=== PATIENT | female | born 1980 | race Caucasian/White ===

== ENCOUNTER 2016-03-21 19:01 | Emergency (ER) | payer OTHER ==
[~2016-03-21] VITALS: Ht 175.2 cm; Wt 94.3 kg
[~2016-03-21 19:01] MED LIST: 'zithromax250 MG PO; ALBUTEROL2.5 MG/0.5 INH; ASMANEX220 MC1 INH; ATIVAN0.5 MG PO; AUGMENTIN 875 M1 TAB PO; BACTRIM DS 8001 TA1 PO; BACTROBAN CREAM15 GM PO; CARAFATE1 G1 PO; CITALOPRAM20 MG PO; CLARITIN10 MG PO; LOMOTIL 0.025 M1 TA1 PO; MEDROL DOSEPAK4 MG PO; MOTRIN800 MG PO; MUCINEX FAST-M180 M3 PO; NAPROSYN500 MG PO; OMEPRAZOLE D/R20 MG PO; PREDNISONE10 MG PO; PREDNISONE20 M1 PO; PREDNISONE50 MG PO; PRILOSEC10 MG PO; SINGULAIR10 M1 PO; TESSALON PERLE100 M1 PO; VENTOLIN H0.09 MG/AC INH; VICODIN 5/500 505 MG PO; ZITHROMAX250 MG PO; ZYRTEC10 MG PO
[2016-03-21 19:06] VITALS: BP 137/75
[2016-03-21] MEDS ORDERED: FLONASE ALLERG9.9 ML NAS (20:13)
[2016-03-21] MEDS ORDERED: PREDNISONE10 MG PO (20:13)
[2016-03-21] MEDS ORDERED: CLARITIN10 MG PO (20:13)
== END 2016-03-21 20:22 | disposition home or self-care (01) ==
LOC: ED 19:01
DX: J45.901 Unspecified asthma with (acute) exacerbation (principal); F17.200 Nicotine dependence, unspecified, uncomplicated; R03.0 Elevated blood-pressure reading, without diagnosis of hypertension; F32.9 Major depressive disorder, single episode, unspecified; Z88.5 Allergy status to narcotic agent; Z88.1 Allergy status to other antibiotic agents

== ENCOUNTER 2016-07-16 09:31 | Emergency (ER) | payer OTHER ==
[~2016-07-16 09:31] MED LIST changes: +FLONASE ALLERG9.9 ML NAS
[2016-07-16] MEDS ORDERED: ZYRTEC10 MG PO (09:38)
[2016-07-16 09:44] VITALS: BP 124/82
[2016-07-16] MEDS ORDERED: DUONEB 3 MG/3 ML3 M1 INH (09:51)
[2016-07-16] MEDS ORDERED: ROBITUSSIN AC 110 ML PO (09:51)
[2016-07-16] MEDS ORDERED: PREDNISONE10 MG PO (09:51)
== END 2016-07-16 13:43 | disposition home or self-care (01) ==
LOC: ED 09:31
DX: J45.901 Unspecified asthma with (acute) exacerbation (principal); R03.0 Elevated blood-pressure reading, without diagnosis of hypertension; F17.200 Nicotine dependence, unspecified, uncomplicated; F32.9 Major depressive disorder, single episode, unspecified; Z90.49 Acquired absence of other specified parts of digestive tract; Z88.1 Allergy status to other antibiotic agents; Z88.2 Allergy status to sulfonamides; Z88.8 Allergy status to other drugs, medicaments and biological substances

== ENCOUNTER 2016-08-31 17:45 | Emergency (ER) | payer OTHER ==
[~2016-08-31] VITALS: Wt 97.5 kg
[~2016-08-31 17:45] MED LIST changes: +DUONEB 3 MG/3 ML3 M1 INH; +ROBITUSSIN AC 110 ML PO
[2016-08-31 18:11] VITALS: BP 117/62
[2016-08-31] MEDS ORDERED: MEDROL DOSEPAK4 MG PO (18:24)
[2016-08-31] MEDS ORDERED: CEPHALEXIN500 M1 PO (18:24)
[2016-08-31] MEDS ORDERED: ZANTAC 150150 MG PO (18:24)
== END 2016-08-31 18:57 | disposition home or self-care (01) ==
LOC: ED 17:45
DX: R60.0 Localized edema (principal); T63.441A Toxic effect of venom of bees, accidental (unintentional), initial encounter; F17.200 Nicotine dependence, unspecified, uncomplicated; Z79.899 Other long term (current) drug therapy; Z88.5 Allergy status to narcotic agent; Z88.1 Allergy status to other antibiotic agents; Y92.89 Other specified places as the place of occurrence of the external cause

== ENCOUNTER 2017-02-04 19:14 | Emergency (ER) | payer OTHER ==
[~2017-02-04] VITALS: Ht 175.2 cm; Wt 97.5 kg
[~2017-02-04 19:14] MED LIST changes: +CEPHALEXIN500 M1 PO; +ZANTAC 150150 MG PO
[2017-02-04 19:21] VITALS: BP 136/78
[2017-02-04 20:28] LABS: BASO # 0.1 10*3/uL (0.0-0.1); EOS # 0.7 10*3/uL (0.0-0.4); EOS % 7.2 % (1.0-4.0); HEMATOCRIT 41.9 % (37.0-47.0); HEMOGLOBIN 13.1 g/dl (12.0-16.0); LYMPH # 3.1 10*3/uL (1.3-4.4); LYMPH % 32.3 % (27.0-41.0); MEAN CORPUSCULAR HGB 25.3 pg (27.0-31.0); MEAN CORPUSCULAR HGB CONC 31.3 g/dl (33.0-37.0); MEAN PLATELET VOLUME 10.7 fl (9.6-12.3); MONO # 0.5 10*3/uL (0.1-1.0); MONO % 5.3 % (3.0-9.0); NEUT # 5.1 10*3/uL (2.3-7.9); NEUT % 53.9 % (47.0-73.0); PLATELET COUNT AUTOMATED 335 10*3/uL (130-400); RED BLOOD COUNT 5.17 10*6/uL (4.10-5.10); RED CELL DISTRI WIDTH 17.1 % (0-14.5); WHITE BLOOD COUNT 9.5 10*3/uL (4.8-10.8)
[2017-02-04 20:44] LABS: ALBUMIN 3.2 gm/dl (3.1-4.5); ALKALINE PHOSPHATASE 79 U/L (45-117); BUN 4 mg/dl (7-24); CHLORIDE 106 mmol/L (98-107); POTASSIUM 3.3 mmol/L (3.5-5.1); SGOT/AST 15 IU/L (3-35); SGPT/ALT 18 U/L (12-78); SODIUM 139 mmol/L (136-145); TOTAL PROTEIN 7.5 gm/dL (6.4-8.2)
[2017-02-04 20:46] LABS: TROPONIN I < 0.015 ng/ml (<0.045)
[2017-02-04] MEDS ORDERED: PREDNISONE10 MG PO (21:10)
[2017-02-04] MEDS ORDERED: CYCLOBENZAPRINE5 M3 PO (21:10)
[2017-02-04] MEDS ORDERED: NAPROSYN500 MG PO (21:10)
[2017-02-04] MEDS ORDERED: DOXYCYCLINE100 M3 PO (21:10)
== END 2017-02-04 21:18 | disposition home or self-care (01) ==
LOC: ED 19:14
PROVIDERS: Nurse Practitioner Family
DX: J45.901 Unspecified asthma with (acute) exacerbation (principal); R07.89 Other chest pain; F17.200 Nicotine dependence, unspecified, uncomplicated; Z88.2 Allergy status to sulfonamides; Z88.8 Allergy status to other drugs, medicaments and biological substances

== ENCOUNTER 2017-02-10 18:21 | Emergency (ER) | payer OTHER ==
[~2017-02-10] VITALS: Wt 97.5 kg
[~2017-02-10 18:21] MED LIST changes: +CYCLOBENZAPRINE5 M3 PO; +DOXYCYCLINE100 M3 PO
[2017-02-10 18:45] LABS: BASO % 0.2 % (0.0-1.0); EOS % 0.1 % (1.0-4.0); HEMOGLOBIN 13.2 g/dl (12.0-16.0); LYMPH # 2.9 10*3/uL (1.3-4.4); LYMPH % 17.2 % (27.0-41.0); MEAN CELL VOLUME 79.8 fl (81.0-99.0); MEAN CORPUSCULAR HGB 25.7 pg (27.0-31.0); MEAN CORPUSCULAR HGB CONC 32.2 g/dl (33.0-37.0); MONO # 0.4 10*3/uL (0.1-1.0); MONO % 2.6 % (3.0-9.0); NEUT # 13.3 10*3/uL (2.3-7.9); NEUT % 79.4 % (47.0-73.0); PLATELET COUNT AUTOMATED 363 10*3/uL (130-400); RED BLOOD COUNT 5.14 10*6/uL (4.10-5.10); RED CELL DISTRI WIDTH 16.7 % (0-14.5); WHITE BLOOD COUNT 16.8 10*3/uL (4.8-10.8)
[2017-02-10 18:47] VITALS: BP 145/95
[2017-02-10 18:56] LABS: ACT PARTIAL THROMBO TIME 21.5 SECONDS (20.8-31.5)
[2017-02-10 19:03] LABS: ALBUMIN 3.5 gm/dl (3.1-4.5); ALKALINE PHOSPHATASE 70 U/L (45-117); BUN 6 mg/dl (7-24); CHLORIDE 102 mmol/L (98-107); CREATININE 0.75 mg/dL (0.55-1.02); POTASSIUM 3.2 mmol/L (3.5-5.1); SGOT/AST 8 IU/L (3-35); SGPT/ALT 18 U/L (12-78); SODIUM 137 mmol/L (136-145); TOTAL PROTEIN 7.5 gm/dL (6.4-8.2); TROPONIN I < 0.015 ng/ml (<0.045)
== END 2017-02-10 19:24 | disposition left against medical advice (07) ==
LOC: ED 18:21
PROVIDERS: Nurse Practitioner Family
DX: R07.89 Other chest pain (principal); R03.0 Elevated blood-pressure reading, without diagnosis of hypertension; F17.200 Nicotine dependence, unspecified, uncomplicated; Z79.899 Other long term (current) drug therapy; Z88.5 Allergy status to narcotic agent; Z88.1 Allergy status to other antibiotic agents

== ENCOUNTER → 2018-02-18 | Outpatient (CLI) | payer BC | END | disposition home or self-care (01) | LOC: RAD 10:44 | DX: R07.9 Chest pain, unspecified (principal) ==

== ENCOUNTER 2018-02-21 17:11 | Emergency (ER) | payer BC ==
[~2018-02-21] VITALS: Ht 175.2 cm; Wt 95.3 kg
[2018-02-21 17:12] VITALS: BP 147/71
[2018-02-21] MEDS ORDERED: PREDNISONE10 MG PO (19:07)
== END 2018-02-21 19:18 | disposition home or self-care (01) ==
LOC: ED 17:11
DX: J45.909 Unspecified asthma, uncomplicated (principal); Z88.1 Allergy status to other antibiotic agents; Z88.2 Allergy status to sulfonamides; Z88.6 Allergy status to analgesic agent; Z79.899 Other long term (current) drug therapy

== ENCOUNTER → 2018-04-09 | Outpatient (CLI) | payer OTHER | END | disposition home or self-care (01) | LOC: CARD 01:45 | DX: I65.23 Occlusion and stenosis of bilateral carotid arteries (principal); I10 Essential (primary) hypertension; F17.210 Nicotine dependence, cigarettes, uncomplicated; Z79.899 Other long term (current) drug therapy ==

== ENCOUNTER → 2019-10-22 | Outpatient (CLI) | payer OTHER | END | disposition home or self-care (01) | LOC: CARD 10-20 09:00 | DX: R00.2 Palpitations (principal) ==

== ENCOUNTER → 2019-12-17 | Outpatient (CLI) | payer OTHER | END | disposition home or self-care (01) | LOC: COVID19 00:34 | PROVIDERS: ATTEND Family Medicine | DX: Z20.828 Contact with and (suspected) exposure to other viral communicable diseases (principal); J44.1 Chronic obstructive pulmonary disease with (acute) exacerbation ==

== ENCOUNTER → 2020-01-28 | Outpatient (CLI) | payer OTHER | END | disposition home or self-care (01) | LOC: COVID19 12:05 | PROVIDERS: ATTEND Family Medicine | DX: Z20.828 Contact with and (suspected) exposure to other viral communicable diseases (principal) ==

== ENCOUNTER 2020-05-24 14:08 | Emergency (ER) | payer SELFPAY ==
[~2020-05-24] VITALS: Wt 95.3 kg
[2020-05-24 14:12] VITALS: BP 151/77
[2020-05-24 14:36] LABS: BASO # 0.1 10*3/uL (0.0-0.1); EOS # 0.6 10*3/uL (0.0-0.4); EOS % 7.4 % (1.0-4.0); HEMATOCRIT 38.8 % (37.0-47.0); LYMPH # 2.5 10*3/uL (1.3-4.4); LYMPH % 29.3 % (27.0-41.0); MEAN CELL VOLUME 82.4 fl (81.0-99.0); MEAN CORPUSCULAR HGB 25.1 pg (27.0-31.0); MEAN CORPUSCULAR HGB CONC 30.4 g/dl (33.0-37.0); MONO # 0.4 10*3/uL (0.1-1.0); NEUT % 57.1 % (47.0-73.0); PLATELET COUNT AUTOMATED 292 10*3/uL (130-400); RED BLOOD COUNT 4.71 10*6/uL (4.10-5.10); RED CELL DISTRI WIDTH 15.8 % (0-14.5); WHITE BLOOD COUNT 8.7 10*3/uL (4.8-10.8)
[2020-05-24 14:54] LABS: ALBUMIN 3.2 gm/dl (3.1-4.5); ALKALINE PHOSPHATASE 84 U/L (45-117); BUN 5 mg/dl (7-24); CHLORIDE 108 mmol/L (98-107); CREATININE 0.84 mg/dL (0.55-1.02); POTASSIUM 3.3 mmol/L (3.5-5.1); SGOT/AST 14 IU/L (3-35); SGPT/ALT 23 U/L (12-78); SODIUM 139 mmol/L (136-145); TOTAL PROTEIN 7.2 gm/dL (6.4-8.2)
[2020-05-24] MEDS ORDERED: PREDNISONE50 MG PO (15:37)
[2020-05-24] MEDS ORDERED: ZITHROMAX250 MG PO (15:37)
== END 2020-05-24 16:03 | disposition home or self-care (01) ==
LOC: ED 14:08
PROVIDERS: Nurse Practitioner
DX: J45.901 Unspecified asthma with (acute) exacerbation (principal); K21.9 Gastro-esophageal reflux disease without esophagitis; Z20.822 Contact with and (suspected) exposure to COVID-19; Z88.8 Allergy status to other drugs, medicaments and biological substances; Z88.2 Allergy status to sulfonamides; Z79.899 Other long term (current) drug therapy; Z79.2 Long term (current) use of antibiotics; Z90.49 Acquired absence of other specified parts of digestive tract

== ENCOUNTER 2020-08-01 10:51 | Emergency (ER) | payer SELFPAY ==
[~2020-08-01] VITALS: Wt 104.3 kg
[2020-08-01 10:57] VITALS: BP 134/78
[2020-08-01] MEDS ORDERED: MUCINEX D ER 61 EACH PO (11:53)
[2020-08-01] MEDS ORDERED: LEVOFLOXACIN500 MG PO (11:53)
[2020-08-01] MEDS ORDERED: PREDNISONE50 MG PO (11:53)
== END 2020-08-01 12:00 | disposition home or self-care (01) ==
LOC: ED 10:51
DX: J44.1 Chronic obstructive pulmonary disease with (acute) exacerbation (principal); Z79.899 Other long term (current) drug therapy; Z88.1 Allergy status to other antibiotic agents; Z88.5 Allergy status to narcotic agent; Z88.8 Allergy status to other drugs, medicaments and biological substances

== ENCOUNTER 2020-08-29 20:49 | Emergency (ER) | payer SELFPAY ==
[~2020-08-29] VITALS: Ht 167.6 cm; Wt 64.4 kg
[~2020-08-29 20:49] MED LIST changes: +LEVOFLOXACIN500 MG PO; +MUCINEX D ER 61 EACH PO
[2020-08-29 21:01] VITALS: BP 134/75
[2020-08-29] MEDS ORDERED: ZITHROMAX250 MG PO (21:34)
[2020-08-29] MEDS ORDERED: PREDNISONE20 M1 PO (21:34)
== END 2020-08-29 21:50 | disposition home or self-care (01) ==
LOC: ED 20:49
DX: J45.901 Unspecified asthma with (acute) exacerbation (principal); Z88.8 Allergy status to other drugs, medicaments and biological substances; Z79.899 Other long term (current) drug therapy; Z88.2 Allergy status to sulfonamides

== ENCOUNTER → 2021-08-12 | Outpatient (CLI) | payer OTHER | END | disposition home or self-care (01) | LOC: US 08:48 | PROVIDERS: ATTEND Internal Medicine | DX: N83.202 Unspecified ovarian cyst, left side (principal) ==

== ENCOUNTER 2021-10-22 17:32 | Emergency (ER) | payer OTHER ==
[~2021-10-22] VITALS: Ht 175.2 cm; Wt 90.7 kg
[2021-10-22 17:56] VITALS: BP 170/77
[2021-10-22 19:37] LABS: BASO % 0.2 % (0.0-1.0); HEMATOCRIT 38.1 % (37.0-47.0); LYMPH # 0.8 10*3/uL (1.3-4.4); LYMPH % 15.4 % (27.0-41.0); MEAN CELL VOLUME 77.9 fl (81.0-99.0); MEAN CORPUSCULAR HGB 24.3 pg (27.0-31.0); MEAN CORPUSCULAR HGB CONC 31.2 g/dl (33.0-37.0); MEAN PLATELET VOLUME 11.2 fl (9.6-12.3); MONO # 0.2 10*3/uL (0.1-1.0); MONO % 4.3 % (3.0-9.0); NEUT % 79.5 % (47.0-73.0); PLATELET COUNT AUTOMATED 287 10*3/uL (130-400); RED BLOOD COUNT 4.89 10*6/uL (4.10-5.10); RED CELL DISTRI WIDTH 17.1 % (0-14.5); WHITE BLOOD COUNT 5.1 10*3/uL (4.8-10.8)
[2021-10-22 20:05] LABS: ALKALINE PHOSPHATASE 79 U/L (45-117); BUN 7 mg/dl (7-24); CHLORIDE 107 mmol/L (98-107); CREATININE 0.92 mg/dL (0.55-1.02); POTASSIUM 3.5 mmol/L (3.5-5.1); SGOT/AST 13 IU/L (3-35); SGPT/ALT 19 U/L (12-78); SODIUM 138 mmol/L (136-145); TOTAL PROTEIN 7.5 gm/dL (6.4-8.2)
[2021-10-22] MEDS ORDERED: ZITHROMAX250 MG PO (20:26)
[2021-10-22] MEDS ORDERED: PREDNISONE20 M1 PO (20:26)
== END 2021-10-22 20:32 | disposition home or self-care (01) ==
LOC: ED 17:32
PROVIDERS: Internal Medicine
DX: J40 Bronchitis, not specified as acute or chronic (principal); Z88.1 Allergy status to other antibiotic agents; Z88.8 Allergy status to other drugs, medicaments and biological substances; Z79.899 Other long term (current) drug therapy; Z90.49 Acquired absence of other specified parts of digestive tract

== ENCOUNTER → 2023-06-27 | Outpatient (CLI) | payer OTHER | END | disposition home or self-care (01) | LOC: MAMMO 01:05 | PROVIDERS: ATTEND Internal Medicine | DX: Z12.31 Encounter for screening mammogram for malignant neoplasm of breast (principal) ==

== ENCOUNTER → 2023-11-19 | Outpatient (CLI) | payer OTHER | END | disposition home or self-care (01) | LOC: RAD 15:46 | PROVIDERS: ATTEND Internal Medicine | DX: U07.1 COVID-19 (principal) ==

== ENCOUNTER → 2024-05-14 | Outpatient (CLI) | payer OTHER | END | disposition home or self-care (01) | LOC: LAB 15:29 | PROVIDERS: ATTEND Internal Medicine | DX: J45.21 Mild intermittent asthma with (acute) exacerbation (principal) ==

== ENCOUNTER → 2024-05-16 | Outpatient (CLI) | payer OTHER | END | disposition home or self-care (01) | LOC: LAB 16:19 | PROVIDERS: ATTEND Internal Medicine | DX: R06.09 Other forms of dyspnea (principal) ==